=== PATIENT | male | born 1940 | race Caucasian/White ===

== ENCOUNTER 2019-11-03 12:52 | Inpatient (IN) | payer MEDICARE ==
[~2019-11-03] VITALS: Ht 172.7 cm; Wt 97.1 kg
--- NOTE | 2019-11-03 13:45 | NUR ---
PAtient seen and assessed by pt.
[2019-11-03 13:47] LABS: BASOPHILS # (AUTO) 0.2 K/uL (0.0-8.0); BASOPHILS % (AUTO) 1.7 % (0.0-2.0); EOSINOPHILS # (AUTO) 0.4 K/uL (0.0-0.7); EOSINOPHILS % (AUTO) 3.5 % (0.0-7.0); HEMATOCRIT 46.4 % (36.7-47.1); HEMOGLOBIN 15.2 g/dL (12.5-16.3); LYMPHOCYTES # (AUTO) 2.9 K/uL (20.0-40.0); LYMPHOCYTES % (AUTO) 25.4 % (20.5-51.5); MEAN CORPUSCULAR HEMOGLOBIN 30.3 uug (23.8-33.4); MEAN CORPUSCULAR HGB CONC 33 g/dL (32.5-36.3); MEAN CORPUSCULAR VOLUME 92.4 fL (73.0-96.2); MONOCYTES # (AUTO) 0.8 K/uL (2.0-10.0); MONOCYTES % (AUTO) 7.2 % (0.0-11.0); NEUTROPHILS # (AUTO) 7.1 K/uL (1.8-8.9); NEUTROPHILS % (AUTO) 62.2 % (38.5-71.5); PLATELET COUNT (AUTO) 277 K/uL (152-348); RED BLOOD CELL COUNT(AUTO) 5.02 MIL/uL (4.06-5.63); WHITE BLOOD COUNT (AUTO) 11.5 K/uL (3.6-10.2)
[2019-11-03 13:57] LABS: ETHANOL < 3 MG/DL (0-0)
[2019-11-03 14:11] LABS: CHLORIDE 101 mmol/L (98-107); POTASSIUM 4.2 mmol/L (3.5-5.1)
[2019-11-03 14:21] LABS: ALANINE AMINOTRANSFERASE 8 U/L (16-63); ALKALINE PHOSPHATASE 94 U/L (50-136); ASPARTATE AMINOTRANSFERASE 14 U/L (15-37); BILIRUBIN,DIRECT 0.1 mg/dL (0.0-0.2); BILIRUBIN,TOTAL 0.5 mg/dL (0.2-1.0); CARBON DIOXIDE 26 mmol/L (21-32); CREATININE 1.4 mg/dL (0.6-1.3); GLUCOSE 119 mg/dL (74-106); TOTAL PROTEIN, SERUM 7.2 g/dL (6.4-8.2); UREA NITROGEN, BLOOD 13 mg/dL (7-18)
--- NOTE | 2019-11-03 14:35 | NUR ---
PATIENT WAS MEDICALLY CLEARED. JOSH BENSON WAS CALLED LEFT MESSAGE.
[2019-11-03 14:37] LABS: ACETAMINOPHEN < 10.0 ug/mL (10-30)
--- NOTE | 2019-11-03 17:31 | NUR ---
Demetri Mccabe in to evaluate patient.
--- NOTE | 2019-11-03 18:47 | NUR ---
Bhavesh called for report as informed by charge Mayo Peters report should be given after shift change.
--- NOTE | 2019-11-03 19:05 | NUR ---
RECEIVED HAND OFF FR DAY SHIFT RN CALLED MEDICAL REVIEW SPECIALIST REGARDING NEED OF SITTER SECURITY MADE AVAILABLE FOR NOW (SHY)
--- NOTE | 2019-11-03 19:10 | NUR ---
pt up and about pacing to and from room accompanied by pt is aox3 with frequent episodes of confusion ra nad ambulatory w/ unstable gait (uses walker at home) fr home will be admitted to MHU 145a [address] +[address] (GD) pending hand off to receiving RN at U
[2019-11-03] MEDS ORDERED: LORAZEPAM 1 MG TABLET PO STA (19:11)
[2019-11-03] MEDS ORDERED: LORAZEPAM 1 MG TABLET ONE (19:16)
[2019-11-03] MEDS ORDERED: QUETIAPINE FUMARATE 25 MG TABLET ONE (19:17)
--- NOTE | 2019-11-03 19:20 | NUR ---
Pt reassured, reoriented and redirected Pt able to comply able to tolerate PO meds as ordered went back to sit on gurney kept warm dry and comfortable hand off and SBAR given to Leatha LEROY
--- NOTE | 2019-11-03 19:59 | NUR ---
pt transported to floor (u 145a) via gurney accomompanied by RN and 1in1 sitter(security) RA JASON Kept calm and comfortable
[2019-11-03] MEDS ORDERED: MAG HYDROX/AL HYDROX/SIMETH 30 ML LIQUID UDC PO PRN (20:15)
[2019-11-03] MEDS ORDERED: MAGNESIUM HYDROXIDE 30 ML LIQUID UDC PO PRN (20:15)
[2019-11-03] MEDS ORDERED: BLOOD SUGAR DIAGNOSTIC 1 EACH STRIP VI ONE (20:15)
[2019-11-03 20:35] VITALS: BP 124/76
[2019-11-03] MEDS ORDERED: QUETIAPINE FUMARATE 25 MG TABLET PO SCH (21:00)
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
--- NOTE | 2019-11-04 06:30 | NUR ---
Patient slept for approx. 7.30 hrs through the night. continue calm and cooperative at this time. Continue forgetful. will continue to monitor.
[2019-11-04 07:30] VITALS: BP 144/83
--- NOTE | 2019-11-04 10:42 | NUR ---
Social Work Note/Family Contact: suction worker contacted patients Alisa ([phone]) and explained patients treatment plan and discharge plan. Per Alisa, she stated that she would want patient back home upon discharge. Alsia stated that she is involved in patients care and is his caregiver.
--- NOTE | 2019-11-04 10:42 | NUR ---
Social Work Note/Initial Discharge Plan: Patient currently resides at home [id number] [place] [id number]; ([phone]) with Alisa ([phone]) who is involved in patients care. Per Alisa, he would want patient back home. SW will work with the pt and the MD regarding appropriate discharge planning. SW will form a safe and proper discharge.
[2019-11-04] MEDS: LORAZEPAM 0.5 MG TABLET PO PRN ×3 (13:13→21:36)
[2019-11-04 14:10] LABS: BILIRUBIN,TOTAL 0.9 mg/dL (0.2-1.0); CREATININE 1.2 mg/dL (0.6-1.3); TOTAL PROTEIN, SERUM 7.6 g/dL (6.4-8.2)
[2019-11-04 16:00] VITALS: BP 134/78
[2019-11-04] MEDS: DIVALPROEX SPRINKLE 125 MG CAP.SPRINK PO SCH (17:23)
[2019-11-04] MEDS: ATORVASTATIN 20 MG TABLET PO SCH (20:12)
[2019-11-04 20:17] VITALS: BP 136/76
[2019-11-04] MEDS: CARVEDILOL 6.25 MG TABLET PO SCH (20:27)
[2019-11-04] MEDS ORDERED: QUETIAPINE FUMARATE 25 MG TABLET PO SCH (21:00)
[2019-11-04] MEDS: TEMAZEPAM 7.5 MG CAPSULE PO PRN (22:44)
[2019-11-05 07:30] VITALS: BP 100/56
[2019-11-05] MEDS: CARVEDILOL 6.25 MG TABLET PO SCH ×2 (08:23→20:17)
[2019-11-05] MEDS: DIVALPROEX SPRINKLE 125 MG CAP.SPRINK PO SCH ×4 (08:24→17:28)
--- NOTE | 2019-11-05 11:38 | NUR ---
Received patient in bed this am trying to get up. Patient is confused and oriented to name only. Max 2 person assist to help patient stand and pivot to chair. Medication compliant and able to feed self. Continuing to reorient patient to environment and situation. No acute distress noted at this time. Monitoring for patient safety.
[2019-11-05 15:59] LABS: *BLOOD, URINE NEGATIVE (NEGATIVE); *CLARITY,URINE SLIGHTLY CLOUDY (CLEAR); *COLOR,URINE DARK YELLOW (YELLOW); *KETONES,URINE NEGATIVE (NEGATIVE); *UROBILINOGEN,URINE 0.2 E.U./dl (NORMAL); LEUKOCYTE ESTERASE ,URINE NEGATIVE (NEGATIVE); NITRITE, URINE NEGATIVE (NEGATIVE)
[2019-11-05 16:05] LABS: *BILIRUBIN,URIN 1+ (NEGATIVE); UGLUCOSE 1+ (NEGATIVE)
[2019-11-05 16:14] LABS: BACTERIA,URINE FEW /HPF (NONE SEEN); RBC,URINE 0-3 /HPF (0-3); SQUAMOUS EPITHELIAL CELL,UR MODERATE /HPF (NONE SEEN); WBC,URINE 0-3 /HPF (0-3)
[2019-11-05 16:15] LABS: *AMPHETAMINE, URINE NEGATIVE (NEGATIVE); *BARBITURATE, URINE NEGATIVE (NEGATIVE); *CANNABINOID, URINE NEGATIVE (NEGATIVE); *COCCAINE, URINE NEGATIVE (NEGATIVE); *OPIATE, URINE NEGATIVE (NEGATIVE); *PHENCYCLIDINE SCREEN,URINE NEGATIVE (NEGATIVE); MUCUS,URINE FEW /LPF (0-FEW)
--- NOTE | 2019-11-05 16:57 | NUR ---
Patient refused Depakote this PM. Also refused VS this afternoon. Doctors are aware. Patient continues to pace the hallway, starting verbal arguments. Very paranoid and not responding to redirection . Standing in the corners of the unit hiding at times. Attempted to have meaningful and reality based conversation, response was poor. Continuing to monitor for safety and encourage medication compliance. Addendum: 11/05/19 at 1707 by Marixa Schrader RN Charted on the wrong patient
[2019-11-05] MEDS ORDERED: LORAZEPAM 0.5 MG TABLET PO PRN (17:15)
[2019-11-05 18:00] VITALS: BP 121/69
--- NOTE | 2019-11-05 18:02 | NUR ---
Patient remains irritable, confused and anxious. Sitting in chair and hyperverbal with everyone passing by. Many attempts to reorient patient to environment and situation. D/T forgetfulness, constant reorientation is needed. Patient compliant with medications so far but much encouragement needed. Continuing to keep patient safe and monitor for escalation in behavior.
--- NOTE | 2019-11-05 20:00 | NUR ---
RECEIVED PATIENT IN THE HALLWAY SITTING IN A MARCK CHAIR NEAR THE NURSING STATION. PATIENT NOTED A/O X 1. CONFUSED, POOR HISTORIAN, UNABLE TO HAVE A MEANINGFUL CONVERSATION. LABILE MOOD , BLUNTED AFFECT. HE WAS ABLE TO COMPLY WITH [facility] MEDICATION REGIMENT. SNACKS AND PO FLUIDS WHERE OFFERED. V/S STABLE. SAFETY AND FALL PRECAUTION IN PLACE. WILL CONTINUE TO MONITOR.
[2019-11-05] MEDS: QUETIAPINE FUMARATE 25 MG TABLET PO SCH (20:11)
[2019-11-05] MEDS: ATORVASTATIN 20 MG TABLET PO SCH (20:11)
[2019-11-05] MEDS: LORAZEPAM 1 MG TABLET PO PRN (20:57)
--- NOTE | 2019-11-05 21:15 | NUR ---
PATIENT NOTED RESTLESS, EASILY IRRITABLE. ATIVAN 1MG PO PRN WAS GIVEN. WILL CONTINUE TO MONITOR.
[2019-11-05 21:49] VITALS: BP 115/75
--- NOTE | 2019-11-05 22:15 | NUR ---
PATIENT NOTED RESTLESS, FIDGETING, EASILY IRRITABLE AND HARD TO REDIRECT. RESTORIL 7.5MG PO PRN WAS GIVEN. WILL CONTINUE TO MONITOR.
[2019-11-05] MEDS: TEMAZEPAM 7.5 MG CAPSULE PO PRN (22:22)
--- NOTE | 2019-11-06 | NUR ---
PATIENT NOTED SLEEPING COMFORTABLY IN HIS BED. WILL CONTINUE Q15 MIN CHECKS.
[2019-11-06] MEDS: LORAZEPAM 1 MG TABLET PO PRN ×3 (05:37→22:12)
[2019-11-06 07:30] VITALS: BP 121/59
[2019-11-06] MEDS: DIVALPROEX SPRINKLE 125 MG CAP.SPRINK PO SCH ×2 (08:41→17:52)
[2019-11-06] MEDS: CARVEDILOL 6.25 MG TABLET PO SCH ×2 (08:42→20:16)
--- NOTE | 2019-11-06 12:24 | NUR ---
Social Work Note/Coordination of Care: ironworker apprentice shop contacted Manuelito ([phone]) and faxed patients [facility] & P psychiatric notes and progress notes.
--- NOTE | 2019-11-06 13:20 | NUR ---
Found patient on the floor sitting from his chair. ROM done denies pain, able to ambulate using fww with steady gait. MD and family notified.
[2019-11-06] MEDS: Z GUARD REMEDY PASTE 57 GM TUBE TOP SCH ×2 (14:16→20:58)
[2019-11-06 16:00] VITALS: BP 122/65
[2019-11-06] MEDS: QUETIAPINE FUMARATE 25 MG TABLET PO SCH (20:15)
[2019-11-06] MEDS: ATORVASTATIN 20 MG TABLET PO SCH (20:15)
--- NOTE | 2019-11-06 20:30 | NUR ---
RECEIVED PATIENT SITTING IN A MARCK CHAIR. HE IS NOTED A/O X1 (TO NAME ONLY). CONFUSED, DISORGANIZED THOUGHTS, EASILY IRRITABLE AND UNABLE TO HAVE A MEANINGFUL CONVERSATION. PATIENT IS REORIENTED AND REASSURED FOR HIS SAFETY. HE IS COMPLAINT WITH MEDICATION REGIMENT AND V/S ARE STABLE AT THIS TIME. SAFETY AND FALL PRECAUTION IN PLACE. WILL CONTINUE TO MONITOR.
[2019-11-06 21:00] VITALS: BP 137/63
[2019-11-06] MEDS: TEMAZEPAM 7.5 MG CAPSULE PO PRN (23:28)
[2019-11-07 07:30] VITALS: BP 105/76
[2019-11-07 07:45] LABS: BASOPHILS % (AUTO) 0.3 % (0.0-2.0); EOSINOPHILS # (AUTO) 0.5 K/uL (0.0-0.7); EOSINOPHILS % (AUTO) 5.9 % (0.0-7.0); HEMATOCRIT 41.4 % (36.7-47.1); LYMPHOCYTES # (AUTO) 2.1 K/uL (20.0-40.0); LYMPHOCYTES % (AUTO) 24.7 % (20.5-51.5); MEAN CORPUSCULAR HEMOGLOBIN 30.4 uug (23.8-33.4); MEAN CORPUSCULAR HGB CONC 34 g/dL (32.5-36.3); MONOCYTES # (AUTO) 0.7 K/uL (2.0-10.0); MONOCYTES % (AUTO) 8.1 % (0.0-11.0); NEUTROPHILS # (AUTO) 5.2 K/uL (1.8-8.9); PLATELET COUNT (AUTO) 247 K/uL (152-348); WHITE BLOOD COUNT (AUTO) 8.4 K/uL (3.6-10.2)
[2019-11-07 08:22] LABS: CREATININE 1.1 mg/dL (0.6-1.3); POTASSIUM 3.8 mmol/L (3.5-5.1); TOTAL PROTEIN, SERUM 6.7 g/dL (6.4-8.2)
[2019-11-07] MEDS: CARVEDILOL 6.25 MG TABLET PO SCH ×2 (08:41→20:07)
[2019-11-07] MEDS: DIVALPROEX SPRINKLE 125 MG CAP.SPRINK PO SCH ×2 (08:42→18:12)
[2019-11-07] MEDS: Z GUARD REMEDY PASTE 57 GM TUBE TOP SCH ×2 (09:25→20:06)
[2019-11-07] MEDS: CLOTRIMAZOLE/BETAMET DIPROP CREAM 15 GM TUBE TOP SCH ×2 (13:46→20:05)
[2019-11-07 15:32] VITALS: BP 138/99
[2019-11-07] MEDS: LORAZEPAM 1 MG TABLET PO PRN (15:58)
[2019-11-07 20:00] VITALS: BP 121/81
[2019-11-07] MEDS: ATORVASTATIN 20 MG TABLET PO SCH (20:05)
[2019-11-07] MEDS: QUETIAPINE FUMARATE 25 MG TABLET PO SCH (20:05)
--- NOTE | 2019-11-08 06:41 | NUR ---
Received Pt in the hallway, A+Ox1, very confused and disoriented, unable to respond appropriately to any questions. Requires assistance with feeding and ADLs, snack given and consumed 100%. Compliant with HS medication, but resistant to care. Attempts to get out of chair and his bed without regard for his safety, Pt kept near nurse's station for safety until placed in bed. Pt is aggressive and combative toward staff when care is rendered, requires multiple staff to provide care. Redness noted to sacral area, Z guard applied. Lotrisone applied to groin folds. Wound care consult ordered. No c/o pain, VS stable.
[2019-11-08 07:30] VITALS: BP 185/74
[2019-11-08] MEDS: CARVEDILOL 6.25 MG TABLET PO SCH ×2 (08:12→20:14)
[2019-11-08] MEDS: DIVALPROEX SPRINKLE 125 MG CAP.SPRINK PO SCH ×2 (08:12→16:43)
[2019-11-08] MEDS: CLOTRIMAZOLE/BETAMET DIPROP CREAM 15 GM TUBE TOP SCH ×2 (08:13→20:12)
[2019-11-08] MEDS: Z GUARD REMEDY PASTE 57 GM TUBE TOP SCH ×2 (08:13→20:12)
--- NOTE | 2019-11-08 09:59 | NUR ---
Received patient climbing out of the bed and standing at the side. Assisted patient to chair for safety. Gait unsteady and patient very confused. Unable to respond to questions appropriately. Very restless this am. Compliant with medications so far. Continuing to monitor for safety. No acute distress noted.
[2019-11-08] MEDS: LORAZEPAM 1 MG TABLET PO PRN (11:44)
[2019-11-08 16:16] VITALS: BP 126/66
[2019-11-08] MEDS: ACETAMINOPHEN 325 MG TABLET PO PRN (16:43)
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
[2019-11-08 20:00] VITALS: BP 121/62
[2019-11-08] MEDS: QUETIAPINE FUMARATE 25 MG TABLET PO SCH (20:13)
[2019-11-08] MEDS: ATORVASTATIN 20 MG TABLET PO SCH (20:13)
--- NOTE | 2019-11-09 02:52 | NUR ---
Social Work Note/Individual Therapy: piece worker met with patient for brief counseling to address patients self-care, bathing and grooming. Patient is unable to have a meaningful conversation with this bid writer as patient presented to be confused/disoriented. piece worker prompted patient the importance of self-care, bathing and grooming. Patient was unable to acknowledge, however; patient needs assistance with self-care.
--- NOTE | 2019-11-09 06:32 | NUR ---
Nursing Note: Received Pt in the hallway sitting in a bethany chair for his safety. A+Ox1, very confused and disoriented, unable to respond appropriately to any questions. Requires assistance with feeding and ADLs, snack given and consumed 100%. Compliant with HS medication, but resistant to care. Attempts to get out of chair and his bed without regard for his safety, Pt kept near nurse's station for safety until placed in bed. Pt is aggressive and combative toward staff when care is rendered, requires multiple staff to provide care. Redness noted to sacral area, Z guard applied. Lotrisone applied to groin folds. Wound care consult ordered. No c/o pain, VS stable.
[2019-11-09 07:30] VITALS: BP 125/59
[2019-11-09] MEDS: DIVALPROEX SPRINKLE 125 MG CAP.SPRINK PO SCH ×3 (08:34→18:31)
[2019-11-09] MEDS: LORAZEPAM 1 MG TABLET PO PRN ×2 (08:34→13:50)
[2019-11-09] MEDS: CARVEDILOL 6.25 MG TABLET PO SCH ×2 (08:34→20:12)
[2019-11-09] MEDS: CLOTRIMAZOLE/BETAMET DIPROP CREAM 15 GM TUBE TOP SCH ×2 (08:35→20:10)
[2019-11-09] MEDS: Z GUARD REMEDY PASTE 57 GM TUBE TOP SCH ×2 (08:35→20:39)
--- NOTE | 2019-11-09 10:09 | NUR ---
Social Work Note/Family Contact: chip loft worker contacted patients Alisa ([phone]) and stated that patient will be discharged to [facility] and she was agreeable to the discharge plan.
--- NOTE | 2019-11-09 13:27 | NUR ---
WOUND CARE CONSULT: PT PRESENTS WITH RASH TO GROIN FOLDS,PERINEUM AND INNER BUTTOCKS WITH INCONTINENCE ASSOCIATED SKIN DAMAGE TO GLUTEAL CREASE, PRESENT ON ADMISSION. RECOMMENDATIONS MADE FOR SKIN PROTECTION AND SKIN CARE. DISCUSSED WITH NURSING STAFF. IN AGREEMENT WITH PLAN OF CARE. Addendum: 11/09/19 at 1329 by ZARIA CORNEJO RN Amended: Links added.
[2019-11-09] MEDS: ACETAMINOPHEN 325 MG TABLET PO PRN (13:50)
--- NOTE | 2019-11-09 14:41 | NUR ---
GPS: Nursing Notes: Thought Disorder: Patient is awake and responding to his name, confused, disoriented, impaired judgment, disorganized, anxious affect, poor impulse control, unable to formulate a viable plan for self care, "I got to go...", restless at times, talking incoherently, episodes of wandering around the unit, going into other pt's room, "I am looking for the door..", redirected and reoriented during shift, continue with treatment plan.
[2019-11-09 15:46] VITALS: BP 134/65
[2019-11-09 20:00] VITALS: BP 120/54
[2019-11-09] MEDS: ATORVASTATIN 20 MG TABLET PO SCH (20:09)
[2019-11-09] MEDS: QUETIAPINE FUMARATE 25 MG TABLET PO SCH (20:10)
--- NOTE | 2019-11-10 06:46 | NUR ---
Nursing Note: Received Pt in the hallway sitting in a bethany chair for his safety. A+Ox1, very confused and disoriented, unable to respond appropriately to any questions. Requires assistance with feeding and ADLs, snack given and consumed 100%. Compliant with HS medication, but resistant to care. Attempts to get out of chair and his bed without regard for his safety, Pt kept near nurse's station for safety until placed in bed. Pt is aggressive and combative toward staff when care is rendered, requires multiple staff to provide care. Redness noted to sacral area-cleansed with soap and water, patted dry, Z guard applied, covered with Mepilex. Lotrisone applied to groin folds. No c/o pain, VS stable.
[2019-11-10 08:15] VITALS: BP 123/71
[2019-11-10] MEDS: CARVEDILOL 6.25 MG TABLET PO SCH ×2 (08:33→20:31)
[2019-11-10] MEDS: DIVALPROEX SPRINKLE 125 MG CAP.SPRINK PO SCH ×3 (08:34→16:55)
[2019-11-10] MEDS: CLOTRIMAZOLE/BETAMET DIPROP CREAM 15 GM TUBE TOP SCH ×2 (08:37→21:36)
[2019-11-10] MEDS: Z GUARD REMEDY PASTE 57 GM TUBE TOP SCH ×2 (08:38→21:36)
[2019-11-10 15:45] VITALS: BP 140/77
[2019-11-10 15:52] VITALS: BP 140/77
--- NOTE | 2019-11-10 20:30 | NUR ---
RECEIVED PATIENT IN THE HALLWAY SITTING IN A ARMAND CHAIR. HE IS NOTED A/O X 1. (NAME ONLY) LABILE MOOD, BRIGHT AFFECT DISORGANIZED SPEECH, DISORGANIZED THINKING IS NOTED. PT IS UNABLE TO HAVE A MEANINGFUL CONVERSATION. HOWEVER, HE IS COMPLIANT WITH [facility] MEDICATIONS. V/S STABLE AT THIS TIME. PATIENT IS REASSURED FOR HIS SAFETY. SAFETY AND FALL PRECAUTION IN PLACE. WILL CONTINUE TO MONITOR.
[2019-11-10] MEDS: QUETIAPINE FUMARATE 25 MG TABLET PO SCH (20:31)
[2019-11-10] MEDS: ATORVASTATIN 20 MG TABLET PO SCH (20:32)
[2019-11-10] MEDS ORDERED: DIVALPROEX 250 MG TABLET.DR PO SCH (21:00)
[2019-11-10] MEDS: LORAZEPAM 1 MG TABLET PO PRN (21:36)
[2019-11-10 21:37] VITALS: BP 131/66
--- NOTE | 2019-11-10 21:40 | NUR ---
PATIENT NOTED RESTLESS, FIDGETING AND ANXIOUS. ATIVAN 1MG PO PRN WAS GIVEN. WILL CONTINUE TO MONITOR.
--- NOTE | 2019-11-10 22:45 | NUR ---
PATIENT NOTED CALM AND PLEASANT. PO FLUIDS WAS GIVEN. A SHOWER WAS ASLO PROVIDED. WILL CONTINUE TO MONITOR.
--- NOTE | 2019-11-11 05:59 | NUR ---
GPS WOUND ASSESSMENT: pictures were taken from patient coccyx area and groin area d/t redness and placed in chart. some improvements are noted in both areas specially groin area. will continue with treatment plan.
[2019-11-11 07:30] VITALS: BP 100/67
[2019-11-11] MEDS: ACETAMINOPHEN 325 MG TABLET PO PRN (07:58)
[2019-11-11] MEDS: LORAZEPAM 1 MG TABLET PO PRN (07:58)
[2019-11-11] MEDS: CARVEDILOL 6.25 MG TABLET PO SCH ×2 (09:00→21:19)
--- NOTE | 2019-11-11 09:00 | NUR ---
Social Work Note/PC Hearing Notification: novelty worker contacted patient's Alisa ([phone]) and notified patients probable cause of hearing today.
[2019-11-11] MEDS: DIVALPROEX SPRINKLE 125 MG CAP.SPRINK PO SCH ×3 (09:43→17:45)
[2019-11-11] MEDS: CLOTRIMAZOLE/BETAMET DIPROP CREAM 15 GM TUBE TOP SCH ×2 (09:51→21:21)
[2019-11-11] MEDS: Z GUARD REMEDY PASTE 57 GM TUBE TOP SCH ×2 (09:55→21:20)
--- NOTE | 2019-11-11 13:21 | NUR ---
Social Work Note/Family Contact: early childhood education worker contacted patient's Alisa ([phone]) and stated that patient will be discharged 11/12 to [facility]. This typewriter operator automatic left a voicemail.
[2019-11-11 16:00] VITALS: BP 120/63
[2019-11-11] MEDS ORDERED: DIVALPROEX 125 MG TABLET.DR PO SCH (21:00)
[2019-11-11] MEDS ORDERED: DIVALPROEX 250 MG TABLET.DR PO SCH (21:00)
[2019-11-11] MEDS: QUETIAPINE FUMARATE 25 MG TABLET PO SCH (21:19)
[2019-11-11] MEDS: ATORVASTATIN 20 MG TABLET PO SCH (21:20)
--- NOTE | 2019-11-11 22:31 | NUR ---
received patient in his bed, with eyes closed, patient is med compliant. no behavioral issue at this time. no sign or symptom of resp. distress, breathing even, unlabored. no indication of pain or discomfort. will continue to monitor patient for safety.
[2019-11-12] MEDS: TEMAZEPAM 7.5 MG CAPSULE PO PRN
[2019-11-12] MEDS: LORAZEPAM 1 MG TABLET PO PRN (02:48)
[2019-11-12 06:56] LABS: BASOPHILS # (AUTO) 0.1 K/uL (0.0-8.0); BASOPHILS % (AUTO) 0.9 % (0.0-2.0); EOSINOPHILS # (AUTO) 0.3 K/uL (0.0-0.7); EOSINOPHILS % (AUTO) 3.7 % (0.0-7.0); HEMATOCRIT 44.5 % (36.7-47.1); HEMOGLOBIN 14.8 g/dL (12.5-16.3); LYMPHOCYTES # (AUTO) 1.7 K/uL (20.0-40.0); LYMPHOCYTES % (AUTO) 21.9 % (20.5-51.5); MEAN CORPUSCULAR HEMOGLOBIN 30.4 uug (23.8-33.4); MEAN CORPUSCULAR HGB CONC 33 g/dL (32.5-36.3); MEAN CORPUSCULAR VOLUME 91.1 fL (73.0-96.2); MONOCYTES % (AUTO) 13.1 % (0.0-11.0); NEUTROPHILS # (AUTO) 4.8 K/uL (1.8-8.9); NEUTROPHILS % (AUTO) 60.4 % (38.5-71.5); PLATELET COUNT (AUTO) 234 K/uL (152-348); RED BLOOD CELL COUNT(AUTO) 4.88 MIL/uL (4.06-5.63); WHITE BLOOD COUNT (AUTO) 7.9 K/uL (3.6-10.2)
[2019-11-12 07:14] LABS: BILIRUBIN,TOTAL 0.5 mg/dL (0.2-1.0); POTASSIUM 3.7 mmol/L (3.5-5.1); TOTAL PROTEIN, SERUM 7.4 g/dL (6.4-8.2)
[2019-11-12 07:30] VITALS: BP 112/73
--- NOTE | 2019-11-12 08:02 | NUR ---
Social Work Note/Discharge: Patient will be discharged to halfway facility, [facility] [id number] [place] [address]; ) via Ambulance transportation at 12PM. Business Intelligence Developer spoke with Manuelito Day Spa Manager at [facility]; ([phone]), who stated patient will be accepted back at facility today. Per patients Alisa, ([phone]) has been made aware and agreeable with discharge plans. Patient is alert and oriented x1 and is unable to plan for self-care. Patient denies any suicidal or homicidal ideations. Patient is aware and agreeable with discharge plans. Patient will continue to follow-up with Psychiatrist Dr. Stone and Hostess Dr. Clarke at [facility] [id number] [place] [address], [place] [address]; ). Patient will follow-up at the facility with (Hostess) and Dr. Stone (Psychiatrist) to discuss smoking cessation and address substance abuse dependency. Patient was provided with mental health referrals to [facility] Crisis Line and the National Suicide Prevention Lifeline . Patient was provided with a brief substance abuse intervention and referred to [facility] , [facility] , and [facility] . Patient presents with euthymic mood and congruent affect.
--- NOTE | 2019-11-12 08:10 | NUR ---
Social Work Note/Firearms Report: Subscription Agent completed and submitted a [employer] firearms report for 5250 grave disability certification. A copy of report has been placed in patient chart.
[2019-11-12 08:17] VITALS: BP 112/73
[2019-11-12] MEDS: CARVEDILOL 6.25 MG TABLET PO SCH (08:17)
[2019-11-12] MEDS: Z GUARD REMEDY PASTE 57 GM TUBE TOP SCH (08:18)
[2019-11-12] MEDS: CLOTRIMAZOLE/BETAMET DIPROP CREAM 15 GM TUBE TOP SCH (08:18)
[2019-11-12] MEDS: DIVALPROEX SPRINKLE 125 MG CAP.SPRINK PO SCH (08:18)
--- NOTE | 2019-11-12 10:37 | NUR ---
Social Work Note/Substance Abuse Intervention: Patient was provided with a brief substance abuse intervention and referred to [facility] , [facility] , and [facility] .
--- NOTE | 2019-11-12 11:49 | NUR ---
Patient discharged to [facility]. Report called to "Mackenzie". Patients VS stable for transfer. Family aware. No SI or HI. No acute distress or behavior issues at this time.
--- NOTE | 2019-11-12 15:53 | NUR ---
Social Work Note/Individual Therapy: steamtable worker met with patient for brief counseling to address patients self-care, bathing and grooming. Patient is unable to have a meaningful conversation with this narrative writer. Patient was unable to have proper eye contact and proper conversation with this narrative writer. Patient presented to be confused. Patient needs assistance with self-care as the nursing staff has helped patient with self-care at the unit such as bathing, grooming, and eating.
== END 2019-11-12 11:45 | DRG 885 ==
LOC: ER 12:52 → GPS 19:02
PROVIDERS: ADMIT Psychiatry & Neurology Psychosomatic Medicine; ATTEND Nurse Practitioner Acute Care
DX: F31.9 Bipolar disorder, unspecified (principal); N17.0 Acute kidney failure with tubular necrosis; F02.81 Dementia in other diseases classified elsewhere, unspecified severity, with behavioral disturbance; E44.1 Mild protein-calorie malnutrition; G30.9 Alzheimer's disease, unspecified; E78.5 Hyperlipidemia, unspecified; I25.2 Old myocardial infarction; F10.21 Alcohol dependence, in remission; F41.9 Anxiety disorder, unspecified; E11.9 Type 2 diabetes mellitus without complications; B35.6 Tinea cruris; I10 Essential (primary) hypertension; D72.829 Elevated white blood cell count, unspecified; Z79.899 Other long term (current) drug therapy; Z85.51 Personal history of malignant neoplasm of bladder
CPT/HCPCS: 36415; 80164; 80307; 85025; 93005; A4663; G0480; G0480-TC; J3490